=== PATIENT | male | born 1960 | race Caucasian/White ===

== ENCOUNTER 2024-07-07 02:52 | Emergency (ER) | payer BC ==
[2024-07-07 03:33] LABS: ALT (SGPT) 29 U/L (Less than 45); AST (SGOT) 119 U/L (11-34); Albumin 3.3 g/dL (3.1-4.5); Alcohol 260.1 mg/dL (Less than 10); Alkaline Phosphatase 114 U/L (40-110); Anion Gap 19 mmol/L (10-20); BUN (Urea Nitrogen) 10 mg/dL (8.4-25.7); Bilirubin, Total 7.1 mg/dL (0.3-1.2); Calc. Creatinine Clearance 0 mL/min (70-130); Calcium 8.1 mg/dL (7.8-10.44); Carbon Dioxide 26 mmol/L (23-31); Chloride 96 mmol/L (98-107); Estimated GFR 98; Glucose 99 mg/dL (80-115); Potassium 2.9 mmol/L (3.5-5.1); Protein, Total 6.3 g/dL (5.8-8.1); Sodium 138 mmol/L (136-145)
[2024-07-07 03:36] LABS: INR-International Normal Ratio 1.8; PTT 39.9 sec (22.9-36.1); Prothrombin Time 20.8 sec (12.0-14.7)
[2024-07-07 03:42] LABS: Lipase 35 U/L (8-78); Magnesium 1.7 mg/dL (1.6-2.6)
[2024-07-07 03:47] LABS: #Basophils 0.1 thou/uL (0.0-0.2); #Lymphocytes 2.1 thou/uL (1.20-3.40); #Monocytes 0.6 thou/uL (0.11-0.59); #Neutrophils 2.7 thou/uL (1.40-6.50); %Basophils 1.3 % (0.0-1.0); %Eosinophils 0.9 % (0.0-10.0); %Lymphocytes 37.6 % (21.0-51.0); %Monocytes 10.7 % (0.0-10.0); %Neutrophils 49.6 % (42.0-75.0); Hematocrit 31.7 % (42.0-52.0); Hemoglobin 10.6 g/dL (14.0-18.0); MDiff Complete? YES; Mean Corpuscular HGB CONC 33.6 g/dL (32.0-36.0); Mean Corpuscular Hemoglobin 30.2 pg (27.0-31.0); Mean Corpuscular Volume 89.9 fl (78.0-98.0); Mean Platelet Volume 6.8 fL (7.4-10.4); Ovalocytes SLIGHT = 2-5 cells (100X) (0-1/hpf); Platelet Adequacy Comment Appears Decreased; Platelet Count 104 10x3/uL (130-400); RBC Distribution Width 19.1 % (11.5-14.5); Red Blood Cell (RBC) Count 3.52 mill/uL (4.70-6.10); Schistocytes SLIGHT = 2-5 cells (100X) (0-1/hpf); White Blood Cell (WBC) Count 5.5 10x3/uL (4.8-10.8)
[2024-07-07 04:31] LABS: Bilirubin Large (Negative); Blood, Urine Negative (Negative); CAUTI Indications for Culture Alt mental st,lethar; Calcium Oxalate Crystals 3+ HPF (None Seen); Clarity Slightly Cloudy (Clear); Glucose, Urine (Dipstick) 100 mg/dL (Negative); Ketone, Urine 15 mg/dL (Negative); Leukocyte Negative (Negative); Mucous/LPF 3+ LPF (<2+); Nitrite Positive (Negative); Protein, Urine (Dipstick) 30 mg/dL (Neg-Trace); RBC/HPF 0-3 HPF (0-3); Squamous Epithelial 0-3 HPF (0-3); Urobilinogen > or = 8.0 mg/dL (Less than 2); WBC/HPF 0-3 HPF (0-3)
[2024-07-07] MEDS ORDERED: cefTRIAXone (ROCEPHIN) 2 GM VIAL ONE (04:31)
[2024-07-07] MEDS ORDERED: Magnesium 2 GM/50 ML BAG (IN WATER) ONE (04:31)
[2024-07-07 04:32] LABS: Urine Culture Reflex No No
[2024-07-07] MEDS ORDERED: Potassium Bicarbonate/Cit Ac 20 MEQ TAB ONE (05:15)
[2024-07-07] MEDS ORDERED: Potassium Chloride 20 MEQ (100 mL) BAG ONE ×2 (05:35→07:49)
[2024-07-07] MEDS ORDERED: Sodium Chloride 0.9% 500 ML ONE (07:49)
[2024-07-07 11:27] LABS: RBC Count-Automated (BF) 22 /cu.mm; WBC/Nucleated-Auto (BF) 156 /cu.mm
[2024-07-07 11:29] LABS: BF Color Yellow; Body Fluid Source Paracentesis Fluid; Clarity Hazy (Clear); Tube # 1
[2024-07-07 12:23] LABS: BF Segmented Neutrophils 2 %; Cell Count Non Hematic 78 %; Lymphocytes 20 %
== END 2024-07-07 08:42 | disposition short-term general hospital (02) ==
LOC: MADERS 02:52
DX: K76.82 Hepatic encephalopathy (principal); F10.129 Alcohol abuse with intoxication, unspecified; K70.30 Alcoholic cirrhosis of liver without ascites; E87.6 Hypokalemia; K65.2 Spontaneous bacterial peritonitis; R94.31 Abnormal electrocardiogram [ECG] [EKG]; I10 Essential (primary) hypertension; Y90.8 Blood alcohol level of 240 mg/100 ml or more
CPT/HCPCS: 36416; 49083; 70450; 80053; 80307; 81001; 82140; 82945; 83605; 83690; 83735; 84157; 85025; 85060; 85610; 85730; 87040; 87070; 87205; 89051; 93005; 94760; 96365; 96366; 96367; 36415-59; J0696; J3475; J3480; J7030